=== PATIENT | female | born 1995 | race African-American/Black ===

== ENCOUNTER 2017-12-01 11:48 | Inpatient (IN) ==
--- NOTE | 2017-12-01 12:48 | DR.EYE ---
HPI Time Seen Time seen: 12:44 PCP Primary Care Physician: YESENIA HPI Comment HPI Comment: PAIN AND SWELLING GETTING WORSE. VISION IS BLURRED AND PT HAVE PHOTOPHOBIA. NO FEVER. HAVE SEVERE HEADACHE. NO TRAUMA REPORTED. Nurses notes reviewed Nurses Notes Review: Yes Complaint Chief Complaint Doctors Comments: PAIN AND SWELLING AND REDNESS LEFT EYE WITH SEVERE HEADACHE TIMES 3 DAYS. Chief Complaint:: PT. C/O LEFT EYE PAIN AND BEING SWOLLEN WELL HEAD AND NECK PAIN. Source History Provided: Patient Mode of arrival Mode of Arrival: Ambulatory Timing Onset of Chief Complaint: 11/28/17 Quality Quality: Pain and Yellow discharge Location Location: Left eye Context Onset: Spontaneous Recent: None History of: None Severity Symptom severity: Moderate Associated signs and symptoms Associated signs and symptoms: Tearing and Photophobia PMH PMH Past Medical History: Yes Past Medical History: Anxiety and Depression Past Medical History Comment: BIPOLAR Past Surgical History: Yes Surgical History: PIECER UP Surgery Past Surgical History Comment: D&C, TUBAL LIGATION Family History History of Family Medical Conditions: No Social History Does patient currently use any type of tobacco product: Yes Have you used tobacco products in the last 12 months: Yes Type of Tobacco Use: Cigarettes Does any household member use tobacco: No Alcohol Use: None Do you use any recreational Drugs:: No Lives With: Family Lives Where: Home infectious screening In the last 2 months have you had wt loss of >10#?: NO Have you had fever, night sweats or hemotysis?: No Have you traveled outside the country in the last 6 months?: No Isolation: Standard ROS Review of Systems Constitutional: No Symptoms Reported Eyes: Blurred Vision, Tearing, Discharge and Photophobia ENTM: No Symptoms Reported Respiratoy: No Symptoms Reported Cardiovascular: No Symptoms Reported Genitourinary: No Symptoms Reported Neurological: No Symptoms Reported Musculoskeletal: No Symptoms Reported Integumentary: Change in Color Hematologic/Lymphatic: No Symptoms Reported Endocrine: No Symptoms Reported Psychiatric: Other (BIPOLAR DISORDER.) All Other Systems: Reviewed and Negative PE Vital Signs Vitals: Temperature 99.1 F Pulse Rate 88 Respiratory Rate 18 Blood Pressure 114/67 O2 Sat by Pulse Oximetry 100 General Limitations: No Limitations General Appearance: Alert and In No Apparent Distress Head Head Exam: Normal Inspection, Atraumatic and Normocephalic Eyes Eye exam: Normal Appearance, PERRL, EOMI and Conjunctival Injection; negative Scleral Icterus Eyelids: Swelling Eyelid: Left Pupils: Regular, Round: Bilateral and Reactive: Bilateral ENT ENT Exam: Normal Exam, Normal Oropharynx and TM's Normal Bilaterally External Ear Exam: Normal External Inspection TM/Canal Exam: Bilateral: Normal Nose Exam: Normal Nose Exam Mouth Exam: Normal Inspection Throat Exam: Normal Inspection Neck Neck Exam: Normal Inspection and Trachea Midline Chest Chest Inspection: Normal Inspection and Symmetric Chest Wall Rise Respiratory Respiratory Exam: Bilateral: Clear to Auscultation Cardiovascular Cardiovascular Exam: Regular Rate, Normal Rhythm and Normal Heart Sounds Abdominal Exam Abdominal Exam: Normal Inspection, Normal Bowel Sounds and Soft; negative Tenderness Extremities Extremities Exam: Normal Inspection Back Back Exam: Normal Inspection Neurologic Neurological Exam: Alert, Oriented X3 and CN II-XII Intact; negative Motor Sensory Deficit Psychiatric Psychiatric Exam: Normal Affect Skin Skin Exam: Erythema Description: Erythematous and Swelling MDM Additional Information Additional Information Obtained From: Family Differential Diagnosis Other Differential Diagnosis: ORBITAL CELLULITIS, HEADACHE COURSE Treatment Treatment: SEE ORDERS. Consultation Consultation Comments: DISCUSS PATIENT WITH DR. PATEL. HE WILL ADMIT PATIENT. Education/Counseling Education/Counseling: Patient, Family and Education Educated On: Diagnosis ROR Labs Reviewed Laboratory Results Reviewed?: Yes Result Diagrams: 12/01/17 12:58 12/01/17 12:58 Laboratory: WBC 6.5 X10^3/uL (3.6-10.0) 12/01/17 12:58 RBC 4.89 X10^6/uL (3.5-5.4) 12/01/17 12:58 Hgb 12.5 g/dL (12.0-16.0) 12/01/17 12:58 Hct 38.4 % (36.0-47.0) 12/01/17 12:58 MCV 78.5 fL (80.0-100.0) L 12/01/17 12:58 MCH 25.6 pg (27.0-34.0) L 12/01/17 12:58 MCHC 32.6 g/dL (33.0-35.0) L 12/01/17 12:58 RDW 15.9 % (11.6-16.5) 12/01/17 12:58 Plt Count 267 X10^3/uL (150.0-450.0) 12/01/17 12:58 Plt Count Comment Adequate (ADEQUATE) 12/01/17 12:58 MPV 8.8 fL (7.4-11.0) 12/01/17 12:58 Neut % (Auto) 63.2 % (42.0-75.0) 12/01/17 12:58 Lymph % (Auto) 25.8 % (21.0-51.0) 12/01/17 12:58 [place] % (Auto) 7.1 % (0.0-13.0) 12/01/17 12:58 Eos % (Auto) 3.3 % (0.9-2.9) H 12/01/17 12:58 Baso % (Auto) 0.6 % (0.2-1.0) 12/01/17 12:58 Neut # (Auto) 4.1 x10^3/uL (2.2-4.8) 12/01/17 12:58 Lymph # (Auto) 1.7 X10^3/uL (1.3-2.9) 12/01/17 12:58 [place] # (Auto) 0.5 x10^3/uL (0.3-0.8) 12/01/17 12:58 Eos # (Auto) 0.2 x10^3/uL (0.0-0.2) 12/01/17 12:58 Baso # (Auto) 0.0 X10^3/uL (0.0-0.1) 12/01/17 12:58 Absolute Nucleated RBC 0.0 /100WBC 12/01/17 12:58 Plt Morphology Comment Normal (NORMAL) 12/01/17 12:58 RBC Morphology Abnormal (NORMAL) A 12/01/17 12:58 Hypochromasia Slight A 12/01/17 12:58 Sodium 138 mmol/L (136-145) 12/01/17 12:58 Corrected Sodium TNP 12/01/17 12:58 Potassium 3.7 mmol/L (3.5-5.1) 12/01/17 12:58 Chloride 102 mmol/L (98-107) 12/01/17 12:58 Carbon Dioxide 30.7 mmol/L (21-32) 12/01/17 12:58 BUN 11 mg/dL (7-18) 12/01/17 12:58 Creatinine 0.85 mg/dL (0.55-1.02) 12/01/17 12:58 Est GFR (MDRD) Af Amer > 60 (>60) 12/01/17 12:58 Est GFR (MDRD) Non-Af > 60 (>60) 12/01/17 12:58 Glucose 71 mg/dL (65-99) 12/01/17 12:58 Lactic Acid 0.8 mmol/L (0.4-2.0) 12/01/17 12:58 Calcium 9.1 mg/dL (8.5-10.1) 12/01/17 12:58 Corrected Calcium TNP 12/01/17 12:58 Total Bilirubin 0.20 mg/dL (0.2-1.0) 12/01/17 12:58 AST 17 Units/L (15-37) 12/01/17 12:58 ALT 21 Units/L (12-78) 12/01/17 12:58 Alkaline Phosphatase 77 Units/L (46-116) 12/01/17 12:58 C-Reactive Protein 13.60 mg/L (0-3.0) H 12/01/17 12:58 Total Protein 9.3 g/dL (6.4-8.2) H 12/01/17 12:58 Albumin 4.1 g/dL (3.4-5.0) 12/01/17 12:58 Globulin 5.2 g/dL (2.5-4.5) H 12/01/17 12:58 Albumin/Globulin Ratio 0.8 Ratio (1.1-2.1) L 12/01/17 12:58 XRAY XRAY Interpreted by: Radiologist XRAY Findings: REPORT DISCUSS WITH PATIENT AND HER MOTHER. Diagnosis Discharge Problem: Periorbital cellulitis of left eye, Headache
[2017-12-01] MEDS ORDERED: TORADOL 60 MG VIAL IM ONE (12:49)
[2017-12-01 13:20] LABS: BASOPHILS % (AUTO) 0.6 % (0.2-1.0); EOSINOPHILS # (AUTO) 0.2 x10^3/uL (0.0-0.2); EOSINOPHILS % (AUTO) 3.3 % (0.9-2.9); HEMATOCRIT 38.4 % (36.0-47.0); HEMOGLOBIN 12.5 g/dL (12.0-16.0); LYMPHOCYTES # (AUTO) 1.7 X10^3/uL (1.3-2.9); LYMPHOCYTES % (AUTO) 25.8 % (21.0-51.0); MEAN CORPUSCULAR HEMOGLOBIN 25.6 pg (27.0-34.0); MEAN CORPUSCULAR HGB CONC 32.6 g/dL (33.0-35.0); MEAN CORPUSCULAR VOLUME 78.5 fL (80.0-100.0); MEAN PLATELET VOLUME 8.8 fL (7.4-11.0); MONOCYTES # (AUTO) 0.5 x10^3/uL (0.3-0.8); MONOCYTES % (AUTO) 7.1 % (0.0-13.0); NEUTROPHILS # (AUTO) 4.1 x10^3/uL (2.2-4.8); NEUTROPHILS % (AUTO) 63.2 % (42.0-75.0); PLATELET COUNT 267 X10^3/uL (150.0-450.0); RED BLOOD COUNT 4.89 X10^6/uL (3.5-5.4); RED CELL DISTRIBUTION WIDTH 15.9 % (11.6-16.5); WHITE BLOOD COUNT 6.5 X10^3/uL (3.6-10.0)
[2017-12-01] MEDS ORDERED: TORADOL 60 MG VIAL ONE (13:20)
[2017-12-01 13:29] LABS: ALANINE AMINOTRANSFERASE 21 Units/L (12-78); ALBUMIN 4.1 g/dL (3.4-5.0); ALKALINE PHOSPHATASE 77 Units/L (46-116); ASPARTATE AMINO TRANSFERASE 17 Units/L (15-37); BLOOD UREA NITROGEN 11 mg/dL (7-18); CALCIUM 9.1 mg/dL (8.5-10.1); CARBON DIOXIDE 30.7 mmol/L (21-32); CHLORIDE 102 mmol/L (98-107); CREATININE 0.85 mg/dL (0.55-1.02); SODIUM 138 mmol/L (136-145); TOTAL PROTEIN 9.3 g/dL (6.4-8.2); eGFR NON BLACK RACES > 60 (>60)
[2017-12-01 13:30] LABS: HYPOCHROMASIA SLIGHT; PLATELET MORPHOLOGY COMMENT NORMAL (NORMAL)
[2017-12-01 13:36] LABS: LACTIC ACID 0.8 mmol/L (0.4-2.0)
--- NOTE | 2017-12-01 13:40 | CT ---
STUDY: CT ORBITS History: Patient complains of left eye pain being swollen, as well as head neck pain. Comparison: None. Technique: Multiple axial images of the orbits were obtained from the mandible to a level above the superior portions of the orbits. Coronal reformatted images were performed and reviewed. Intravenous contrast was not administered. Automated exposure control (AEC) was utilized to adjust the MA and/or kV. Findings: Axial images: There is subtle asymmetric preseptal periorbital soft tissue swelling on the left. Ther e is extension from the lacrimal gland superiorly, along the lateral margin of the left orbit, extend ing into the infraorbital preseptal soft tissues. There is some extension into the premalar soft tiss ues on the left. No postseptal or intraconal fat stranding is identified. No radiopaque foreign matt s are identified. The optic nerves are intact. The extraocular muscles are normal in appearance. The globes themselves are within normal limits. No acute osseous abnormalities are identified. There is n o evidence of abnormal fluid collection. There is mild mucosal thickening in the maxillary sinuses. There is mild mucosal thickening at the sp henoid ethmoidal recess on the right. The maxillary sinuses and frontal recesses are predominantly cl ear. The frontal sinus is not pneumatized. No air-fluid levels are identified. Reformatted images: The lamina papyracea are intact bilaterally. There is no evidence of orbital blow out on either side. Ethmoid roofs are asymmetric with the right appearing higher than the left. There is mucosal thickening around the ostiomeatal units bilaterally. IMPRESSION: Preseptal periorbital soft tissue swelling around the left eye as described. Findings are most consis tent with a preseptal periorbital cellulitis. No postseptal or intraconal involvement is appreciated at this time. There is no evidence of abscess formation. Clinical correlation is recommended. Reported By:
[2017-12-01] MEDS ORDERED: VANCOMYCIN HCL 1 GM VIAL ONE (14:42)
[2017-12-01] MEDS: NS 1000 ML 1,000 ML IV SCH (14:56)
[2017-12-01] MEDS: VANCOMYCIN HCL 1 GM VIAL 1 G in D5W 250 ML IV 250 ML IV SCH ×2 (14:56→21:16)
[2017-12-01] MEDS ORDERED: VANCOMYCIN HCL 500 MG VIAL 250 MG, VANCOMYCIN HCL 1 GM VIAL 1 G in D5W 250 ML IV 250 ML IV SCH (15:00)
[2017-12-01] MEDS: MOTRIN TAB 600 MG PO PRN (16:23)
[2017-12-01] MEDS: VISTARIL PO PRN (16:23)
[2017-12-01 17:26] VITALS: BMI 23.8
[2017-12-01] MEDS: BUSPAR PO SCH (21:07)
[2017-12-01] MEDS: TORADOL 30 MG VIAL IVP PRN (21:08)
[2017-12-01] MEDS: COGENTIN TAB 1 MG PO SCH (21:08)
[2017-12-02] MEDS: MOTRIN TAB 600 MG PO PRN ×3 (00:11→15:21)
[2017-12-02] MEDS: VISTARIL PO PRN ×2 (00:11→20:29)
[2017-12-02] MEDS: NS 1000 ML 1,000 ML IV SCH ×5 (01:49→23:53)
[2017-12-02] MEDS: TORADOL 30 MG VIAL IVP PRN ×3 (04:40→20:29)
[2017-12-02 06:24] LABS: BASOPHILS % (AUTO) 0.9 % (0.2-1.0); EOSINOPHILS # (AUTO) 0.2 x10^3/uL (0.0-0.2); EOSINOPHILS % (AUTO) 3.8 % (0.9-2.9); HEMATOCRIT 32.5 % (36.0-47.0); HEMOGLOBIN 10.5 g/dL (12.0-16.0); LYMPHOCYTES # (AUTO) 2.1 X10^3/uL (1.3-2.9); LYMPHOCYTES % (AUTO) 43.3 % (21.0-51.0); MEAN CORPUSCULAR HEMOGLOBIN 25.6 pg (27.0-34.0); MEAN CORPUSCULAR HGB CONC 32.3 g/dL (33.0-35.0); MEAN CORPUSCULAR VOLUME 79.1 fL (80.0-100.0); MEAN PLATELET VOLUME 9.2 fL (7.4-11.0); MONOCYTES # (AUTO) 0.4 x10^3/uL (0.3-0.8); NEUTROPHILS # (AUTO) 2.2 x10^3/uL (2.2-4.8); PLATELET COUNT 225 X10^3/uL (150.0-450.0); RED CELL DISTRIBUTION WIDTH 16.1 % (11.6-16.5); WHITE BLOOD COUNT 4.9 X10^3/uL (3.6-10.0)
[2017-12-02 07:03] LABS: HYPOCHROMASIA SLIGHT; PLATELET MORPHOLOGY COMMENT NORMAL (NORMAL)
[2017-12-02 07:05] LABS: ALANINE AMINOTRANSFERASE 17 Units/L (12-78); ALBUMIN 2.9 g/dL (3.4-5.0); ALKALINE PHOSPHATASE 57 Units/L (46-116); ASPARTATE AMINO TRANSFERASE 20 Units/L (15-37); BLOOD UREA NITROGEN 10 mg/dL (7-18); CALCIUM 8.1 mg/dL (8.5-10.1); CARBON DIOXIDE 25.9 mmol/L (21-32); CHLORIDE 107 mmol/L (98-107); CREATININE 0.76 mg/dL (0.55-1.02); SODIUM 139 mmol/L (136-145); TOTAL PROTEIN 7.1 g/dL (6.4-8.2); eGFR NON BLACK RACES > 60 (>60)
[2017-12-02] MEDS: PHENERGAN TAB 25 MG PO PRN ×3 (07:33→21:21)
[2017-12-02] MEDS: BUSPAR PO SCH ×2 (08:46→20:28)
[2017-12-02] MEDS: VANCOMYCIN HCL 1 GM VIAL 1 G in D5W 250 ML IV 250 ML IV SCH ×2 (08:47→22:15)
[2017-12-02] MEDS ORDERED: MILK OF MAGNESIA PO SCH (09:00)
[2017-12-02] MEDS: BACTRIM DS TAB PO SCH ×2 (11:05→20:28)
[2017-12-02] MEDS: NORCO 7.5/325 MG TAB PO PRN ×3 (11:05→21:21)
[2017-12-02] MEDS ORDERED: MILK OF MAGNESIA PO PRN (11:07)
[2017-12-02] MEDS ORDERED: COLACE CAP 100 MG PO PRN (11:07)
[2017-12-02] MEDS: NICOTINE PATCH TD SCH (20:28)
[2017-12-02] MEDS: COGENTIN TAB 1 MG PO SCH (20:29)
[2017-12-02] MEDS ORDERED: COLACE CAP 100 MG PO SCH (21:00)
[2017-12-02 21:54] LABS: CREATININE 0.87 mg/dL (0.55-1.02)
[2017-12-03] MEDS ORDERED: PHARMACY CONSULT - VANCOMYCIN XX SCH (01:00)
[2017-12-03] MEDS: NORCO 7.5/325 MG TAB PO PRN ×3 (03:26→21:49)
[2017-12-03] MEDS: PHENERGAN TAB 25 MG PO PRN ×2 (03:26→11:03)
[2017-12-03] MEDS: TORADOL 30 MG VIAL IVP PRN ×2 (05:53→16:59)
[2017-12-03] MEDS ORDERED: VANCOMYCIN HCL 500 MG VIAL 500 MG, VANCOMYCIN HCL 1 GM VIAL 1 G in D5W 250 ML IV 250 ML IV SCH (06:00)
[2017-12-03 06:23] LABS: BASOPHILS % (AUTO) 0.5 % (0.2-1.0); EOSINOPHILS # (AUTO) 0.2 x10^3/uL (0.0-0.2); EOSINOPHILS % (AUTO) 3.6 % (0.9-2.9); HEMATOCRIT 31.2 % (36.0-47.0); LYMPHOCYTES # (AUTO) 2.3 X10^3/uL (1.3-2.9); LYMPHOCYTES % (AUTO) 43.2 % (21.0-51.0); MEAN CORPUSCULAR HEMOGLOBIN 25.3 pg (27.0-34.0); MONOCYTES # (AUTO) 0.4 x10^3/uL (0.3-0.8); MONOCYTES % (AUTO) 7.9 % (0.0-13.0); NEUTROPHILS # (AUTO) 2.4 x10^3/uL (2.2-4.8); NEUTROPHILS % (AUTO) 44.8 % (42.0-75.0); PLATELET COUNT 227 X10^3/uL (150.0-450.0); RED BLOOD COUNT 3.95 X10^6/uL (3.5-5.4); RED CELL DISTRIBUTION WIDTH 15.8 % (11.6-16.5); WHITE BLOOD COUNT 5.4 X10^3/uL (3.6-10.0)
[2017-12-03 06:27] LABS: ALANINE AMINOTRANSFERASE 15 Units/L (12-78); ALBUMIN 2.9 g/dL (3.4-5.0); ALKALINE PHOSPHATASE 59 Units/L (46-116); ASPARTATE AMINO TRANSFERASE 17 Units/L (15-37); BLOOD UREA NITROGEN 9 mg/dL (7-18); CALCIUM 8.2 mg/dL (8.5-10.1); CARBON DIOXIDE 24.8 mmol/L (21-32); CHLORIDE 106 mmol/L (98-107); COR CA(FOR HYPOALB) 9.1 mg/dL (8.5-10.1); CREATININE 0.86 mg/dL (0.55-1.02); SODIUM 138 mmol/L (136-145); eGFR NON BLACK RACES > 60 (>60)
[2017-12-03] MEDS: NS 1000 ML 1,000 ML IV SCH ×3 (06:28→17:00)
[2017-12-03 06:38] LABS: HYPOCHROMASIA SLIGHT; PLATELET MORPHOLOGY COMMENT NORMAL (NORMAL)
[2017-12-03] MEDS ORDERED: D5W 250 ML IV 250 ML IV ONE (06:47)
[2017-12-03] MEDS ORDERED: VANCOMYCIN HCL 1 GM VIAL ONE (06:47)
[2017-12-03] MEDS ORDERED: VANCOMYCIN HCL 500 MG VIAL ONE (06:47)
[2017-12-03] MEDS: BUSPAR PO SCH ×2 (08:46→21:39)
[2017-12-03] MEDS: BACTRIM DS TAB PO SCH ×2 (08:47→21:39)
[2017-12-03] MEDS: NICOTINE PATCH TD SCH (08:47)
[2017-12-03] MEDS: MOTRIN TAB 600 MG PO PRN (08:53)
[2017-12-03] MEDS: GENTAMICIN SULF (OPHTH) AFFEYE SCH ×3 (11:02→18:57)
[2017-12-03] MEDS: VANCOMYCIN HCL 1 GM VIAL 1 G in D5W 250 ML IV 250 ML IV SCH (21:38)
[2017-12-03] MEDS: COGENTIN TAB 1 MG PO SCH (21:40)
[2017-12-03] MEDS: VISTARIL PO PRN (21:50)
[2017-12-04] MEDS: TORADOL 30 MG VIAL IVP PRN ×2 (00:02→19:45)
[2017-12-04] MEDS: GENTAMICIN SULF (OPHTH) AFFEYE SCH ×7 (03:27→23:40)
[2017-12-04 05:38] LABS: BASOPHILS # (AUTO) 0.1 X10^3/uL (0.0-0.1); BASOPHILS % (AUTO) 1.1 % (0.2-1.0); EOSINOPHILS # (AUTO) 0.2 x10^3/uL (0.0-0.2); HEMATOCRIT 30.8 % (36.0-47.0); LYMPHOCYTES # (AUTO) 2.3 X10^3/uL (1.3-2.9); LYMPHOCYTES % (AUTO) 46.9 % (21.0-51.0); MEAN CORPUSCULAR HEMOGLOBIN 25.5 pg (27.0-34.0); MEAN CORPUSCULAR HGB CONC 32.5 g/dL (33.0-35.0); MEAN CORPUSCULAR VOLUME 78.3 fL (80.0-100.0); MEAN PLATELET VOLUME 8.8 fL (7.4-11.0); MONOCYTES # (AUTO) 0.4 x10^3/uL (0.3-0.8); MONOCYTES % (AUTO) 7.8 % (0.0-13.0); NEUTROPHILS % (AUTO) 40.2 % (42.0-75.0); PLATELET COUNT 231 X10^3/uL (150.0-450.0); RED BLOOD COUNT 3.93 X10^6/uL (3.5-5.4); RED CELL DISTRIBUTION WIDTH 15.7 % (11.6-16.5); WHITE BLOOD COUNT 4.9 X10^3/uL (3.6-10.0)
[2017-12-04 05:57] LABS: ALANINE AMINOTRANSFERASE 16 Units/L (12-78); ALKALINE PHOSPHATASE 59 Units/L (46-116); ASPARTATE AMINO TRANSFERASE 19 Units/L (15-37); BLOOD UREA NITROGEN 18 mg/dL (7-18); CALCIUM 8.5 mg/dL (8.5-10.1); CARBON DIOXIDE 25.8 mmol/L (21-32); CHLORIDE 104 mmol/L (98-107); COR CA(FOR HYPOALB) 9.3 mg/dL (8.5-10.1); CREATININE 0.92 mg/dL (0.55-1.02); TOTAL PROTEIN 7.3 g/dL (6.4-8.2); eGFR NON BLACK RACES > 60 (>60)
[2017-12-04 06:02] LABS: SODIUM 137 mmol/L (136-145)
[2017-12-04 06:07] LABS: HYPOCHROMASIA SLIGHT; PLATELET MORPHOLOGY COMMENT NORMAL (NORMAL)
[2017-12-04] MEDS: NS 1000 ML 1,000 ML IV SCH ×3 (06:21→17:35)
[2017-12-04] MEDS: VISTARIL PO PRN ×2 (06:21→20:43)
[2017-12-04] MEDS: NORCO 7.5/325 MG TAB PO PRN ×4 (06:22→22:45)
[2017-12-04 06:54] LABS: CREATININE 0.95 mg/dL (0.55-1.02)
[2017-12-04] MEDS: VANCOMYCIN HCL 1 GM VIAL 1 G in D5W 250 ML IV 250 ML IV SCH ×3 (07:00→22:04)
[2017-12-04] MEDS: BACTRIM DS TAB PO SCH ×2 (08:47→20:43)
[2017-12-04] MEDS: NICOTINE PATCH TD SCH (08:47)
[2017-12-04] MEDS: BUSPAR PO SCH ×2 (08:47→20:43)
[2017-12-04] MEDS: COGENTIN TAB 1 MG PO SCH (20:43)
[2017-12-04] MEDS ORDERED: PHARMACY COMMENT IV NR (21:30)
[2017-12-05] MEDS: NORCO 7.5/325 MG TAB PO PRN ×3 (02:37→12:06)
[2017-12-05] MEDS: PHENERGAN TAB 25 MG PO PRN (02:38)
[2017-12-05] MEDS: GENTAMICIN SULF (OPHTH) AFFEYE SCH ×3 (02:58→11:27)
[2017-12-05] MEDS: NS 1000 ML 1,000 ML IV SCH (05:56)
[2017-12-05] MEDS: TORADOL 30 MG VIAL IVP PRN (05:57)
[2017-12-05 06:07] LABS: VANCOMYCIN,TROUGH 17.7 ug/mL (15-20)
[2017-12-05 06:12] LABS: BASOPHILS % (AUTO) 0.5 % (0.2-1.0); EOSINOPHILS # (AUTO) 0.2 x10^3/uL (0.0-0.2); EOSINOPHILS % (AUTO) 4.5 % (0.9-2.9); HEMATOCRIT 33.4 % (36.0-47.0); HEMOGLOBIN 10.9 g/dL (12.0-16.0); LYMPHOCYTES # (AUTO) 2.5 X10^3/uL (1.3-2.9); LYMPHOCYTES % (AUTO) 53.4 % (21.0-51.0); MEAN CORPUSCULAR HEMOGLOBIN 25.5 pg (27.0-34.0); MEAN CORPUSCULAR HGB CONC 32.6 g/dL (33.0-35.0); MEAN PLATELET VOLUME 8.8 fL (7.4-11.0); MONOCYTES # (AUTO) 0.4 x10^3/uL (0.3-0.8); MONOCYTES % (AUTO) 9.2 % (0.0-13.0); NEUTROPHILS # (AUTO) 1.5 x10^3/uL (2.2-4.8); NEUTROPHILS % (AUTO) 32.4 % (42.0-75.0); PLATELET COUNT 306 X10^3/uL (150.0-450.0); RED BLOOD COUNT 4.28 X10^6/uL (3.5-5.4); RED CELL DISTRIBUTION WIDTH 15.6 % (11.6-16.5); WHITE BLOOD COUNT 4.7 X10^3/uL (3.6-10.0)
[2017-12-05 06:14] LABS: ALANINE AMINOTRANSFERASE 18 Units/L (12-78); ALBUMIN 3.2 g/dL (3.4-5.0); ALKALINE PHOSPHATASE 63 Units/L (46-116); ASPARTATE AMINO TRANSFERASE 18 Units/L (15-37); BLOOD UREA NITROGEN 12 mg/dL (7-18); CALCIUM 8.7 mg/dL (8.5-10.1); CARBON DIOXIDE 26.6 mmol/L (21-32); CHLORIDE 103 mmol/L (98-107); COR CA(FOR HYPOALB) 9.3 mg/dL (8.5-10.1); CREATININE 0.98 mg/dL (0.55-1.02); SODIUM 138 mmol/L (136-145); TOTAL PROTEIN 7.9 g/dL (6.4-8.2); eGFR NON BLACK RACES > 60 (>60)
[2017-12-05] MEDS: VANCOMYCIN HCL 1 GM VIAL 1 G in D5W 250 ML IV 250 ML IV SCH (06:24)
[2017-12-05 07:06] LABS: PLATELET MORPHOLOGY COMMENT NORMAL (NORMAL)
[2017-12-05 07:07] LABS: HYPOCHROMASIA SLIGHT
[2017-12-05] MEDS: BUSPAR PO SCH (08:30)
[2017-12-05] MEDS: BACTRIM DS TAB PO SCH (08:30)
[2017-12-05 09:59] VITALS: BP 111/53
[2017-12-05] MEDS: NICOTINE PATCH TD SCH (11:27)
== END 2017-12-05 12:10 | disposition home or self-care (01) | DRG 603 ==
LOC: ER 11:51 → MED/SURG 15:44
PROVIDERS: ADMIT Obstetrics & Gynecology Obstetrics; ATTEND Obstetrics & Gynecology Obstetrics
DX: R51 Headache; L03.213 Periorbital cellulitis; B95.62 Methicillin resistant Staphylococcus aureus infection as the cause of diseases classified elsewhere
CPT/HCPCS: 36415; 70480; 80053; 80202; 82565; 83605; 85025; 86140; 87040; 87070; 87077; 87186; 96365; 96372; 96374; 99283; 99284; A4216; A4222; Q0169; Q0177; J1885; J3370; J7030; J7060